=== PATIENT | female | born 1960 | race Caucasian/White ===

== ENCOUNTER → 2019-11-09 | Outpatient (CLI) | payer OTHER, SELFPAY ==
[2019-11-09 15:13] VITALS: BMI 26.5
--- NOTE | 2019-11-09 15:15 | RAD_ITS ---
STUDY: X-RAY - LEFT KNEE REASON FOR EXAM: Pain around the patella. TECHNIQUE: 4 view(s) of the knee. COMPARISON: None. FINDINGS: Normal visualized distal femur. Normal visualized proximal tibia and fibula. Normal proximal tibiofibular articulation. There is mild lateral subluxation of the medial and lateral femorotibial compartments only on the PA tunnel view. There are small marginal osteophytes and joint space narrowing of the patellofemoral articulation. The soft tissue structures are unremarkable. RAD/Knee 4 or More Views IMPRESSION: Patellofemoral arthrosis. Mild lateral subluxation of the medial and lateral femorotibial compartments on the tunnel view. Electronically Signed: Jacinto Pickens MD at 8:21 EDT Tel , Service support ,
== END | disposition home or self-care (01) ==
LOC: HPRAD 15:15
PROVIDERS: PCP Family Medicine; Referring Provider Orthopaedic Surgery; Visit Provider Orthopaedic Surgery
DX: M25.562 Pain in left knee (principal)
CPT/HCPCS: 73564

== ENCOUNTER 2019-12-06 12:00 | Outpatient (RCR) | payer OTHER, SELFPAY ==
[2019-11-09 15:13] VITALS: BMI 26.5
--- NOTE | 2019-11-15 11:17 | HP.PTEVAL ---
Patient's Visit Information SLICK LYNCH is a 59 year old F referred to Physical Therapy by Dr. Diane Mcnamara DO with a diagnosis of L KNEE PF OA. Date of Evaluation: 11/15/19 Physical Therapist: Brittney Kelly PT, Cert MDT - Visit Plan Frequency: 2-3x /Week Duration: 4-6 Weeks Plan: LEFT MEDIAL KNEE US. POSTURE CORRECTION/STRENGTHENING. GAIT TRAINING. STAIR TRAINING. BOO LE ROM, STRETCHING AND STRENGTHENING ON LAND AND IN THE POOL. - Subjective Work/Leisure: PRN AT [employer] IN [employer]. HOURS VARY WITH USUALLY NOT WORKING MORE THAN ABOUT 20 HOURS A WEEK. LIKES TO PLAY PICKLE BALL. LIKES TO WALK. CAN'T PLAY PICKLE BALL OR WALK FOR EX RIGHT NOW DUE TO HER KNEE PROBLEM. Disability: NO. Present symptoms: LEFT MEDIDAL KNEE PAIN. NO NUMBNESS OR TINGLING. Present since: ABOUT 4 TO 5 YEARS BUT END OF SEPTEMBER GOT A LOT WORSE. Pain Scale: WORST 4/10, LEAST 1/10. Currently: 05/14. Commenced as a result of: CAUGHT FOOT UNDER IV POOL AT WORK BEGINNING OF OCTOBER AND GOT WORSE BUT WAS WALKING LIKE A PEG LEG BEFORE THAT BUT WHEN CAUGHT HER FOOT, STOMPED AND KNEE HYPEREXTENDED AND WORSE. LEFT KNEE PAIN STARTED 25 YEARS OR SO AGO FOR NO APPARENT REASON. OVER THE YEARS HAD SOME EPISODES OF HYPEREXTENDING THAT WOULD FLARE IT UP BUT NOT MUCH UNTIL RECENTLY. Symptoms at onset: LEFT KNEE. Worse: GETS WORSE THE DAY PROGRESS'S. STEPS (CAN'T DO STEPS), WALKING DOWN AN INCLINE ABOUT KILLS ME. PROLONGED WALKING. SIT TO STAND ESPECIALLY AT NIGHT. Better: IBUPROFEN AND ICE. Disturbed sleep: NOT NOW BUT WAS. Previous history/Previous treatment: ORTHO CONSULT RESULTING IN J BRACE ABOUT 25 YEARS SINCE THEN NO TREATMENTS UNTIL NOW. Treatment this episode: RECEIVED NEW BRACE FROM DR. MCNAMARA. PT ORDERED. NO INJECTIONS. NO PRESCRIPTIONS MEDICATION. Gait: SINCE FLARE UP IN SEPTEMBER WALKING IS GIMPY. EVEN BEFORE SEPTEMBER COULD NOT EVEN WALK NORMAL AND WORE A COMPRESSION SLEEVE. NO FALLS. USED CRUTCHES WHEN IT WAS AT ITS WORST BUT FOR THE MOST PART HAS BEEN ABLE TO PUT WEIGHT ON IT. Accidents: NO. Unexplained weight loss: NO. Imagin11/09/19 L KNEE X-RAY: IMPRESSION: Patellofemoral arthrosis. Mild lateral subluxation of the medial and lateral femorotibial. compartments on the tunnel view. PMH: UNREMARKABLE. Recent major surgery: NO. OTHER: THE FOLLOWING HISTORY IS FROM RECENT ORTHO WALLY'T AND CONFIRMED WITH PATIENT TODAY. PATIENT REPORTS IT IS GETTING BETTER. SLICK LYNCH is a 59 year old F New patient here today for left knee generalized pain that is more severe around the patella. Worse with walking and going from sitting to standing position. Audible popping with ROM. Instable going down a hill or stairs. States the knee tends to hyperextend a lot. She is wearing a brace that helps her with stability. Denies injury or falls. Has not had any injections of surgeries. Spoke with about the mal-alignment of her knee and developing patellofemoral osteoarthritis. She also has a torn ACL which is causing her mechanics to be off. Spoke with her about her options- strengthening for physical therapy, bracing, injections. Patient will try PT and bracing first, and if she continues to have pain she would be a candidate for a visco injection. - Objective Sitting/Standing Posture: BOO GENU VALGUS. Lordosis: NORMAL. Lateral shift: NO. Relevant shift: N/A. Other Observations: USING UE'S TO TRANSFER SIT TO STAND AND A LITTLE DIFFICULTY INITIATING GAIT AFTER SITTING. PATIENT IS UNABLE TO SQUAT. Motor deficit: RIGHT LE 5/5 WITH MMT'ING EXCEPT HIP GRADED 4/5. LLE: HIP 4-/5, KNEE EXT 4/5, KNEE FLEX 4/5 ANKLE 5/5. Sensory deficit: BOO LE LIGHT TOUCH SENSATION INTACT AND SYMMETRICAL. ROM deficit: FULL BOO KNEE EXT TO 130 DEG FLEXION IN SUPINE WITH A HEEL SLIDE BUT MORE END RANGE TIGHTNESS REPORTED WITH LLE COMPARED TO RIGHT. Dural Signs: NEGATIVE BOO LE'S. Lumbar mvmt loss: flex - NIL. ext - MOD. R SG - MOD. L SG - MOD. PATIENT DENIES ANY BACK PAIN OR INCREASED LEG SX'S WITH LUMBAR ROM TESTING. Core strength: POOR. Palpation: MILD LEFT MEDIAL KNEE TENDERNESS AND SWELLING WITH PALPATION TODAY. - Goals Goal 1:: DECREASE C/0 LEFT MEDIAL KNEE PAIN Goal Time Frame: 4-6 Weeks Goal 2:: INDEP AND SAFE GAIT ON ALL SURFACES WITH LEAST ASSISTIVE DEVICE AND DEVIATIONS. Goal Time Frame: 4-6 Weeks Goal 3:: INCREASE FUNCTIONAL ROM OF LLE Goal Time Frame: 4-6 Weeks Goal 4:: INCREASE FUNCTIONAL STRENGTH OF LLE Goal Time Frame: 4-6 Weeks Goal 5:: PATIENT WILL BE INDEP WITH A HOME AND/OR GYM PROGRAM FOR CONTINUED IMPROVEMENT ONCE FORMAL PHYSICAL THERAPY CONCLUDES. Goal Time Frame: 4-6 Weeks - Anticipated Interventions Patient/Client Instruction: Educate patient on: Condition, Plan of Care, Risk Factors, Benefits of Fitness Program For the Purpose of:: To improve self management Therapeutic Exercise to Include: Strength training, Body mechanics, Postural training, Flexibilty training, Gait and locomotor training, Neuromotor development, In an aquatic setting, Dynamic Lumbar Stabilization For the Purpose of:: To decrease pain, To increase ROM, To improve muscle performance and motor function, To increase tolerance to activity/condition/position, To improve ability of physical actions for home/community/work/leisure, To improve gait and locomotor functions TENS: Yes IF ES: Yes Cryotherapy (ice pack, ice massage): Yes Thermo therapy (hot pack): Yes Ultrasound (thermal/non thermal): Yes For the Purpose of:: To decrease pain, To decrease swelling/inflammation, To improve nutrient delivery to tissue Thank you for the opportunity to evaluate your patient. For Medicare and Medicare HMO plans, please review the plan of care and approve it. It will need to be FAXED BACK to us at [phone] for Medicare purposes. For Medicare only, by signing this I certify the plan of care. Please let me know if there are questions or concerns regarding this plan of care. Physician Signature: Date:
--- NOTE | 2019-12-06 12:24 | HP.PTDCSUM ---
It has been my pleasure to treat SLICK LYNCH referred by Dr. Diane Mcnamara DO, with the diagnosis of L KNEE PF OA for a total of 8 visit(s). Discharge Date: Please see the following information for a summary of their discharge status. Subjective: PATIENT REPORTS SHE IS GETTING BETTER - ITS A PROCESS. STATES SHE IS READY TO BE DISCHARGED AND JOIN OUR MEMBERSHIP TO CONTINE INDEP EX. IT IS DEFINATELY A LOT BETTER THAN IT WAS. ROM IS A LOT BETTER. RARELY WEARS THE BRACE. L knee Pain Intensity (Out of 10): 0 % Improvement: 75 Objective/Function: PATIENT WAS SEEN TODAY FOR RE-ASSESSMENT OF PROGRESS TOWARD THE SET PT GOALS AND THE NEED FOR FURTHER PHYSICAL THERAPY VS READINESS FOR DISCHARGE. UPON EXAM TODAY ALL PT GOALS HAVE BEEN MET AND PATIENT IS APPROPRIATE FOR D/C TO [facility] AND FOLLOW UP WITH DR. MCNAMARA NEEDED. CURRENT EX'S INCLUDE: Elliptical: Ramp and Level 4 x5 min to increase endurance and blood flow. Upright Bike or Recumbant Bike as well for cardio. Goblet Squats: 10#, 3x10. Left Step Up to Balance: BOSU, 2x15 (Right rail as needed). Bilat Deficit HR: slant board, 2x20. Seated LP (5): 90#, 2x15 - plate at 2, seat at 3.. Seated Single LP (5): 40#, 2x15. Seated Hip Abd (4): 35#, 2x15. Seated HSC (20): 30#, 3x10 (35# next) seat back 2, leg pad 4. Rocker Balance: 2x1 min. Prone Quad Strap Stretch: 3x30 sec. Goal 1:: DECREASE C/0 LEFT MEDIAL KNEE PAIN Goal Progress: Goal Met Goal 2:: INDEP AND SAFE GAIT ON ALL SURFACES WITH LEAST ASSISTIVE DEVICE AND DEVIATIONS. Goal Progress: Goal Met Goal 3:: INCREASE FUNCTIONAL ROM OF LLE Goal Progress: Goal Met Goal 4:: INCREASE FUNCTIONAL STRENGTH OF LLE Goal Progress: Goal Met Goal 5:: PATIENT WILL BE INDEP WITH A HOME AND/OR GYM PROGRAM FOR CONTINUED IMPROVEMENT ONCE FORMAL PHYSICAL THERAPY CONCLUDES. Goal Progress: Goal Met Plan: D/C. PATIENT AGREEABLE. If there are questions or concerns regarding this patient's physical therapy, please feel free to call me at [phone]. Thank you for the referral of this patient. Sincerely, Brittney Kelly, PT, Cert MDT
== END 2019-12-06 19:00 | disposition home or self-care (01) ==
LOC: PT 12:00
PROVIDERS: PCP Family Medicine; Referring Provider Orthopaedic Surgery; Visit Provider Orthopaedic Surgery
DX: M17.12 Unilateral primary osteoarthritis, left knee (principal)
CPT/HCPCS: 97035; 97110; 97113; 97161; 97164

== ENCOUNTER → 2020-05-03 13:29 | Outpatient (CLI) | payer OTHER, SELFPAY ==
--- NOTE | 2020-05-03 13:31 | BI_ITS ---
MAMMOGRAPHY - BILATERAL SCREENING REASON FOR EXAM: Female, 60 years old. Routine annual screening examination. PERTINENT HISTORY: Mother with breast cancer. Grandmother with breast cancer. TECHNIQUE: Digital bilateral breast shana (3D mammographic acquisition) in the CC and MLO projections. 2-D mediolateral oblique (MLO) and craniocaudad (CC) views of both breasts were obtained. CAD: Full Field Digital Mammography with Computer Added Detection was performed. COMPARISON: Comparison is made with prior study dated 06/06/2016 and 10/19/2014. FINDINGS: Breast Composition: There are scattered areas of fibroglandular density. There are no dominant masses or suspicious calcifications. Stable small benign appearing bilateral axillary lymph nodes. No other significant abnormalities are identified. There has been no significant change since the prior study. BI/SCREEN MAMM (CAD) W/SHANA BILAT IMPRESSION: Stable bilateral screening mammogram. Yearly follow-up mammogram recommended. (A) ASSESSMENT CATEGORY: BIRADS Category 2: Benign. A letter regarding these results will be sent to the patient by the facility within 30 days. Approximately 10% of breast cancers are not detected by mammography. A normal mammogram should not delay biopsy of a clinically suspicious abnormality. [id number] Electronically Signed: Aman Bishop, at 10:09 EST , Service support ,
== END ==
PROVIDERS: PCP Family Medicine; Referring Provider Family Medicine; Visit Provider Family Medicine
DX: Z12.31 Encounter for screening mammogram for malignant neoplasm of breast (principal)
CPT/HCPCS: 77063; 77067